=== PATIENT | male | born 1980 | race Caucasian/White ===

== ENCOUNTER 2017-01-19 18:53 | Emergency (ER) | payer OTHER ==
[~2017-01-19] VITALS: Ht 180.3 cm; Wt 127.0 kg
[~2017-01-19 18:53] MED LIST: HYDRELX3 PO; UNABLE; [UNRECOGNIZED DRUG - OTHER]
[2017-01-19 18:56] VITALS: BP 162/100; Ht 180.3 cm; Wt 127.0 kg
[2017-01-19] MEDS ORDERED: MoRPHine SULFATE 10 MG/ML CARP/VIAL IM STA (19:23)
[2017-01-19] MEDS ORDERED: KETOROLAC TROMETHAMINE 60 MG/2 ML VIAL IM STA (19:23)
[2017-01-19] MEDS ORDERED: AZAT50TA5 PO (19:34)
--- NOTE | 2017-01-19 20:07 | DIAGNOSTIC IMAGING REPORT ---
LUMBAR SPINE 2 OR 3 VIEWS CLINICAL HISTORY: lower R paraspinal back pain pain COMPARISON STUDY: None FINDINGS: Negative lumbar spine. Vertebral body stature is normal IMPRESSION: Normal study The above report was generated using voice recognition software. It may contain grammatical, syntax or spelling errors. Electronically signed by: London Oro M.D. 01/19/2017 8:06 PM Dictated Date/Time: 01/19/2017 8:05 PM
[2017-01-19] MEDS ORDERED: OXYC1TAB3 PO (20:42)
[2017-01-19] MEDS ORDERED: PRED50TA PO (20:48)
[2017-01-19 21:00] VITALS: PULSE 82; O2SAT 99
--- NOTE | 2017-01-19 21:18 | EMERGENCY ROOM VISIT NOTE ---
History Report prepared by Sarahi: Miracle Kaplan Under the Supervision of: Dr. Nolberto Herrera M.D. First contact with patient: 19:01 Chief Complaint: BACK PAIN Stated Complaint: BACK PAIN RADIATING TO R KNEE History of Present Illness The patient is a 36 year old male who presents to the Emergency Room with complaints of severe low back pain starting about a month ago and worsening 2 days ago. He bent over to waste picker a piece of paper when he had an onset of his pain. He initially had some right lower back/right upper hip swelling which has now resolved. He has pain radiation from the lower back/right upper hip area to the back of the right knee. The pain resolves for about a week with chiropractic treatment. He denies any ivm-ov-fdezcduu activities 2 days ago that worsened his pain. He has worsening pain with certain positions such as sitting down and standing up. He denies any worsening pain with palpation. He has pain improvement with lying down. 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 Pt denies headache, change in vision , fevers, chest pain, shortness of breath, nausea, vomiting, diarrhea, pain with urination, melena, numbness in groin, and numbness/weakness in lower extremities. Source of History: patient Onset: about a month ago Position: back (lower) Symptom Intensity: severe Timing: worsening Modifying Factors (Worsening): other (certain positions such as sitting down and standing up) Modifying Factors (Relieving): other (lying down) Associated Symptoms: No fevers, No headache, No chest pain, No SOB, No nausea, No vomiting, No diarrhea, No weakness, No numbness Review of Systems See HPI for pertinent positives & negatives. A total of 10 systems reviewed and were otherwise negative. Past Medical & Surgical Medical Problems: (1) Vasculitis Surgical Problems: (1) History of tonsillectomy Family History FH: cancer Hypertension Social History Smoking Status: Never Smoker Alcohol Use: none Marital Status: Housing Status: lives with family Occupation Status: employed Current/Historical Medications Scheduled Azathioprine (Imuran), 50 MG PO DAILY Prednisone (Prednisone), 50 MG PO DAILY Scheduled PRN Oxycodone Immediate Rel Tab (Roxicodone Ir), 5 MG PO Q6H PRN for Pain Allergies Coded Allergies: Bupropion (Verified Allergy, Unknown, rash, 01/19/17) Sulfa Drugs (Verified Allergy, Unknown, ?, 03/04/13) Uncoded Allergies: SULFA (Allergy, Unknown, 03/18/04) Physical Exam Vital Signs Date Time Temp Pulse Resp B/P (MAP) Pulse Ox O2 Delivery O2 Flow Rate FiO2 01/19/17 21:00 82 19 99 01/19/17 18:56 73 18 162/100 99 Room Air Physical Exam GENERAL: Laying in bed, in minimal distress, non-toxic EYE EXAM: normal conjunctiva, PERRL and EOM's grossly intact OROPHARYNX: no exudate, no erythema, lips, buccal mucosa, and tongue normal and mucous membranes are moist NECK: supple, no nuchal rigidity, no adenopathy, non-tender LUNGS: Clear to auscultation. Normal chest wall mechanics HEART: no murmurs, S1 normal and S2 normal ABDOMEN: abdomen soft, non-tender, normo-active bowel sounds, no masses, no rebound or guarding. BACK: Back is symmetrical on inspection and there is no deformity, no midline tenderness, no CVA tenderness. Minimal right lower lumbar paraspinal tenderness tracking into right gluteus. Flexion extension, of hip, knee, ankles, and EHL 5/ 5 bilaterally. Gross sensations intact. Patellar and Achilles reflexes 1/4 bilaterally. SKIN: no rashes and no bruising UPPER EXTREMITIES: upper extremities are grossly normal. LOWER EXTREMITIES: No pitting edema. NEURO EXAM: Normal sensorium, cranial nerves II-XII grossly intact, normal speech, no gross weakness of arms, no gross weakness of legs. Medical Decision & Procedures ER Provider Diagnostic Interpretation: X-ray results as stated below per my review and the radiologist's interpretation : LUMBAR SPINE 2 OR 3 VIEWS CLINICAL HISTORY: lower R paraspinal back pain pain COMPARISON STUDY: None FINDINGS: Negative lumbar spine. Vertebral body stature is normal IMPRESSION: Normal study The above report was generated using voice recognition software. It may contain grammatical, syntax or spelling errors. Electronically signed by: London Oro M.D. 01/19/2017 8:06 PM Dictated Date/Time: 01/19/2017 8:05 PM Medications Administered Medications (Trade) Dose Ordered Sig/Suze Route Start Time Stop Time Status Last Admin Dose Admin Morphine Sulfate (MoRPHine SULFATE INJ) 6 mg NOW STAT IM 01/19/17 19:23 01/19/17 19:24 DC 01/19/17 19:44 6 MG Ketorolac Tromethamine (Toradol Inj) 60 mg NOW STAT IM 01/19/17 19:23 01/19/17 19:24 DC 01/19/17 19:45 60 MG Prednisone (PredniSONE TAB) 60 mg NOW STAT PO 01/19/17 20:48 01/19/17 20:49 DC 01/19/17 21:00 60 MG ED Course ED COURSE: Vital signs were reviewed and showed hypertensive The patients medical record was reviewed The above diagnostic studies were performed and reviewed. ED treatments and interventions as stated above. 1900: The patient was evaluated in room C11B. A complete history and physical examination was performed. 1922: Toradol Inj 60 mg IM, Morphine Sulfate 6 mg IM 2047: Prednisone 60 mg PO 2049: Upon reevaluation, the patient is feeling better.I discussed my findings with the patient and he understands and agrees with the treatment plan. Based on the patients age, coexisting illnesses, exam and lab findings the decision to treat as an outpatient was made. The patient remained stable while under my care. The patient appeared well at the time of discharge. Medical Decision Medication Reconciliation: I attest that I have personally reviewed the patient' s current medication list. Blood Pressure Screening: The patient was found to have a slightly elevated blood pressure due to circumstances. I do not believe that the patient requires hypertension monitoring. Differential diagnoses includes but is not limited to lumbar radiculopathy, muscle strain, facture, cauda equina, mass, and disc herniation. Patient is a 36-year-old male who presents the ER for lower back pain. This started on a half months ago when he was bending over picking up a piece of paper. Since then the pain has been radiating from his right gluteus down his right leg into his knee. No weakness or numbness. Able to urinate and move his bowels without difficulty. Neurologic exam is completely intact. X-rays were unremarkable. Afebrile. She was given IM morphine with improvement of his pain. He is given oral steroids and discharged to follow-up with his PCP. He will continue with his chiropractor as he gets relief for about a week following manipulation. Discussed with Pt concerning signs and symptoms to watch out for. Pt was instructed to follow up with their PCP and discussed with the patient their option to return to the ED at anytime for persistent or worsening symptoms. The appropriate anticipatory guidance and out-patient management, including indications for return to the emergency department, were explained at length to the patient and understood. Impression Primary Impression: Back pain Scribe Attestation The scribe's documentation has been prepared under my direction and personally reviewed by me in its entirety. I confirm that the note above accurately reflects all work, treatment, procedures, and medical decision making performed by me. Departure Information Dispostion Home / Self-Care Prescriptions Prednisone (PREDNISONE) 50 Mg Tab 50 MG PO DAILY for 4 Days, TAB Prov: Shayan Hope, DO 01/19/17 Oxycodone Immediate Rel Tab (ROXICODONE IR) 5 Mg Tab 5 MG PO Q6H Y for Pain, #14 TAB Prov: Shayan Hope, DO 01/19/17 Referrals John Willett M.D. ([facility]) (PCP) Forms HOME CARE DOCUMENTATION FORM, IMPORTANT VISIT INFORMATION Patient Instructions Back Pain - [facility], [facility] Additional Instructions Please follow up with your primary care doctor with in the next 24 hours. Any worsening of your symptoms, please return to the ED immediately. This includes fevers greater than 100.4, weakness or numbness in arms or legs, inability to urinate/move your bowels, or any other concerning signs or symptoms from your standpoint. Please refrain from heavy lifting and sudden twisting/turning/bending. Problem Qualifiers Primary Impression: Back pain Back pain location: low back pain Chronicity: acute Back pain laterality: unspecified Sciatica presence: unspecified whether sciatica present Qualified Codes: M54.5 - Low back pain
== END 2017-01-19 21:00 | disposition home or self-care (01) ==
LOC: C.EDB 18:55 → C.EDC 21:00
DX: M54.5 Low back pain (principal); Z98.890 Other specified postprocedural states; Z88.2 Allergy status to sulfonamides; Z88.8 Allergy status to other drugs, medicaments and biological substances; Z79.899 Other long term (current) drug therapy; Z80.9 Family history of malignant neoplasm, unspecified; Z82.49 Family history of ischemic heart disease and other diseases of the circulatory system